=== PATIENT | female | born 1990 | race Caucasian/White ===

== ENCOUNTER 2018-03-16 20:31 | Emergency (ER) | payer BC ==
[~2018-03-16] VITALS: Ht 152.4 cm; Wt 50.8 kg
[2018-03-16 20:38] VITALS: BP_SYST 134
[2018-03-16] MEDS ORDERED: LIDOCAINE 1% 10 MG/ML, 20 ML MDV IJ ONE (21:15)
[2018-03-16] MEDS ORDERED: BACITRACIN 1 GM OINT TP ONE (21:15)
[2018-03-16] MEDS ORDERED: DIPH-TET-PERTUS Vaccine 0.5 ML VIAL (ADACEL) IM ONE (21:15)
[2018-03-16 22:12] VITALS: BP_SYST 131
== END 2018-03-16 22:12 | disposition home or self-care (01) ==
LOC: SED 20:31
DX: S61.011A Laceration without foreign body of right thumb without damage to nail, initial encounter (principal); W26.0XXA Contact with knife, initial encounter; Y93.89 Activity, other specified; Y92.89 Other specified places as the place of occurrence of the external cause; Y99.8 Other external cause status
CPT/HCPCS: 12001; 90471; 90715; 99283; J2001